=== PATIENT | male | born 2000 | race Caucasian/White ===

== ENCOUNTER 2025-02-23 16:27 | Emergency (ER) | payer OTHER ==
[~2025-02-23] VITALS: Ht 185.4 cm; Wt 86.2 kg
[2025-02-23 16:35] VITALS: TEMP 98.1
[2025-02-23] MEDS ORDERED: LIDOCAINE 1%-EPI 1:100,000 20 ML VIAL ONE (17:56)
[2025-02-23] MEDS: LIDOCAINE 2%-EPI 1:100,000 30 ML VIAL TP ONE (18:29)
[2025-02-23] MEDS ORDERED: KETOROLAC TROMETHAMINE 15 MG/ML VIAL ONE (18:47)
[2025-02-23] MEDS ORDERED: ACETAMINOPHEN ES 500 MG TABLET ONE (18:47)
[2025-02-23] MEDS ORDERED: SULF1TAB48 PO (18:53)
[2025-02-23] MEDS: KETOROLAC TROMETHAMINE 15 MG/ML VIAL IM ONE (18:54)
[2025-02-23] MEDS: ACETAMINOPHEN ES 500 MG TABLET PO ONE (18:55)
[2025-02-23 19:33] VITALS: BP 114/65; O2SAT 96
== END 2025-02-23 19:34 | disposition home or self-care (01) ==
LOC: ER 16:41
DX: S51.012A Laceration without foreign body of left elbow, initial encounter (principal); M25.552 Pain in left hip; Z60.2 Problems related to living alone; W18.30XA Fall on same level, unspecified, initial encounter; Y93.89 Activity, other specified; Y92.89 Other specified places as the place of occurrence of the external cause; Y99.8 Other external cause status
CPT/HCPCS: 99283; 12002; 73503; 96372; J1885; A6403; J3490; 73502